=== PATIENT | male | born 1940 | race Caucasian/White ===

== ENCOUNTER 2016-08-05 07:45 | Emergency (ER) | payer OTHER ==
[2016-08-05 08:10] VITALS: BP 135/44
[2016-08-05] MEDS ORDERED: Albuterol 2.5 MG/3 ML NEB.SOL* (0.083%) INH ONE (08:25)
[2016-08-05] MEDS ORDERED: Ipratropium 0.5MG/2.5ML NEB* 0.5 MG/2.5 ML NEB.SOLN INH ONE (08:25)
--- NOTE | 2016-08-05 08:43 | UC ---
Respiratory Complaint HPI - HPI Summary HPI Summary: 75 yo male with copd on home O2 presents with a 2 week hx of worsening wheezing and dyspnea no f/c no CP - History of Current Complaint Chief Complaint: UCRespiratory Stated Complaint: COUGH Time Seen by Provider: 08/05/16 08:06 Hx Obtained From: Patient Onset/Duration: Gradual Onset, Lasting Weeks Timing: Constant Severity Initially: Mild Severity Currently: Moderate Pain Intensity: 2 Pain Scale Used: 0-10 Numeric Character: Cough: Nonproductive Aggravating Factors: Exertion Alleviating Factors: Bronchodilator Associated Signs And Symptoms: Positive: Dyspnea, Wheezing - Allergies/Home Medications Allergies/Adverse Reactions: Allergies Allergy/AdvReac Type Severity Reaction Status Date / Time No Known Allergies Allergy Verified 08/05/16 08:09 Home Medications: Home Medications Albuterol HFA INHALER* [Ventolin HFA Inhaler*] 2 puff INH Q6H PRN 08/05/16 [ History Confirmed 08/05/16] Benazepril & Hydrochlorothiazi [Lotensin Hct 20-12.5 mg] 1 tab PO DAILY [History Confirmed 08/05/16] Diclofenac Sodium [Diclofenac Sodium Xr] 75 mg PO BID 08/05/16 [History Confirmed 08/05/16] Fluticasone Propionate (Nasal) [Flonase Allergy Relief] 50 mcg NA BID 08/05/16 [ History Confirmed 08/05/16] Fluticasone-Salmeterol 250-50* [Advair Diskus 250-50*] 1 puff INH BID 08/05/16 [ History Confirmed 08/05/16] Folic Acid TAB* [Folvite TAB*] 1 mg PO DAILY 08/05/16 [History Confirmed ] Hydroxychloroquine TAB* [Plaquenil TAB*] 200 mg PO BID 08/05/16 [History Confirmed 08/05/16] Methotrexate TAB* 3 tab PO WEEKLY 08/05/16 [History Confirmed 08/05/16] Omeprazole CAP* [Prilosec CAP* 20 MG] 20 mg PO DAILY 08/05/16 [History Confirmed 08/05/16] amLODIPine TAB* [Norvasc TAB*] 5 mg PO DAILY 08/05/16 [History Confirmed ] guaiFENesin ER TAB [Mucinex*] 600 mg PO BID 08/05/16 [History Confirmed 08/05/16 ] PMH/Surg Hx/FS Hx/Imm Hx Cardiovascular History Of: Reports: Hypertension Respiratory History Of: Reports: COPD, Pneumonia - Surgical History Surgical History: Yes Surgery Procedure, Year, and Place: LEFT HAND - Family History Known Family History: Positive: Hypertension, Respiratory Disease - Social History Alcohol Use: Weekly Substance Use Type: None Smoking Status (MU): Former Smoker When Did the Patient Quit Smoking/Using Tobacco: 8 YRS AGO Review of Systems Constitutional: Negative Skin: Negative Eyes: Negative ENT: Negative Respiratory: Shortness Of Breath, Cough Cardiovascular: Negative Gastrointestinal: Negative Genitourinary: Negative Motor: Negative Neurovascular: Negative Musculoskeletal: Negative Neurological: Negative Psychological: Negative All Other Systems Reviewed And Are Negative: Yes Physical Exam Triage Information Reviewed: Yes Appearance: No Pain Distress, Well-Nourished Vital Signs: Initial Vital Signs Temp 97.8 F 08/05/16 08:01 Pulse 76 08/05/16 08:01 Resp 16 08/05/16 08:01 BP 135/44 08/05/16 08:01 Pulse Ox 89 08/05/16 08:01 Eyes: Positive: Conjunctiva Clear ENT: Negative: Hearing grossly normal, Nasal congestion, Nasal drainage, Trismus , Muffled/hoarse voice Neck: Positive: Supple, Nontender Respiratory: Positive: No respiratory distress, No accessory muscle use, Wheezing Cardiovascular: Positive: RRR. Negative: Tachycardia, Bradycardia Musculoskeletal: Positive: ROM Intact, No Edema Neurological Exam: Normal Neurological: Positive: Alert Psychological Exam: Normal Skin Exam: Normal UC Diagnostic Evaluation - Laboratory O2 Sat by Pulse Oximetry: 89 - on room air/hypoxic Re-Evaluation - Re-Evaluation First Eval Re-Evaluation Time: 09:26 Change: Improved - much less wheezing Respiratory Course/Dx - Differential Dx/Diagnosis Provider Diagnoses: acute bronchitis with bronchospasm Discharge - Discharge Plan Condition: Stable Disposition: HOME Prescriptions: Azithromycin TAB* [Zithromax TAB*] 250 mg PO DAILY #6 tab Prednisone [Deltasone] 40 mg PO DAILY #10 tab Patient Education Materials: Acute Bronchitis (ED) Referrals: Linnette Driver MD [Primary Care Provider] - 4 Days (recheck in 4-5 days) Additional Instructions: to ER for new or worsening symptoms
== END 2016-08-05 09:36 | disposition home or self-care (01) ==
LOC: UCCORT 07:45
DX: J44.0 Chronic obstructive pulmonary disease with (acute) lower respiratory infection (principal); J20.9 Acute bronchitis, unspecified; I10 Essential (primary) hypertension; Z87.891 Personal history of nicotine dependence
CPT/HCPCS: 99212; G0463; J7644

== ENCOUNTER 2017-05-03 13:33 | Emergency (ER) | payer OTHER ==
[2017-05-03 14:47] VITALS: BP 136/65
--- NOTE | 2017-05-03 15:10 | UC ---
Shoulder Pain HPI - HPI Summary HPI Summary: pt c/o upper back and upper arm pain, myalgia X 2 weeks. Denies injury , cp, sob, jaw pain, or nausea. - History of Current Complaint Chief Complaint: UCUpperExtremity Stated Complaint: LEFT SHOULDER INJ Time Seen by Provider: 05/03/17 14:45 Hx Obtained From: Patient Onset/Duration: Gradual Onset, Lasting Weeks - 2, Still Present Timing: Constant Severity Initially: Mild Severity Currently: Mild Character: Dull, Aching, Stiffness Aggravating Factor(s): Movement Alleviating Factor(s): Rest, Other - warm pack Associated Signs And Symptoms: Positive: Negative Related History: Dominant Hand Right - Risk Factors Non-Orthopedic Risk Factor: Negative DVT Risk Factors: Negative Septic Arthritis Risk Factor: Negative - Allergies/Home Medications Allergies/Adverse Reactions: Allergies Allergy/AdvReac Type Severity Reaction Status Date / Time No Known Allergies Allergy Verified 05/03/17 14:02 Home Medications: Home Medications Albuterol HFA INHALER* [Ventolin HFA Inhaler*] 2 puff QID PRN 05/03/17 [History Confirmed 05/03/17] Benazepril & Hydrochlorothiazi [Lotensin Hct 20-12.5 mg] 1 tab DAILY 05/03/17 [ History Confirmed 05/03/17] Diclofenac Sodium (Topical) [Diclofenac Sodium] 1 applic DAILY PRN 05/03/17 [ History Confirmed 05/03/17] Diclofenac Sodium EC TAB* [Voltaren EC TAB*] 75 mg BID 05/03/17 [History Confirmed 05/03/17] Fluticasone-Salmeterol 250-50* [Advair Diskus 250-50*] 1 puff BID 05/03/17 [ History Confirmed 05/03/17] Folic Acid TAB* [Folvite TAB*] 1 mg DAILY 05/03/17 [History Confirmed 05/03/17] Hydroxychloroquine TAB* [Plaquenil TAB*] 1 tab BID 05/03/17 [History Confirmed 05/03/17] Methotrexate TAB* 3 tab WEEKLY 05/03/17 [History Confirmed 05/03/17] Omeprazole CAP* [Prilosec CAP* 20 MG] 1 cap DAILY 05/03/17 [History Confirmed ] Oxygen 2 PRN 05/03/17 [History] amLODIPine TAB* [Norvasc 5 mg TAB*] 1 tab DAILY 05/03/17 [History Confirmed ] PMH/Surg Hx/FS Hx/Imm Hx Previously Healthy: Yes - arthritis Cardiovascular History: Hypertension - Surgical History Surgical History: Yes Surgery Procedure, Year, and Place: LEFT HAND. 1997 RIGHT rotator cuff - Family History Known Family History: Positive: Hypertension, Respiratory Disease - Social History Occupation: Retired Lives: With Family Alcohol Use: Occasionally Substance Use Type: None Smoking Status (MU): Former Smoker Have You Smoked in the Last Year: No When Did the Patient Quit Smoking/Using Tobacco: 8 YRS AGO - Immunization History Most Recent Influenza Vaccination: 2017 Vaccination Up to Date: Yes Review of Systems Constitutional: Negative Skin: Negative Eyes: Negative ENT: Negative Respiratory: Negative Cardiovascular: Negative Gastrointestinal: Negative Genitourinary: Negative Motor: Decreased ROM - right shoulder has history of torn rotator cuff, Neurovascular: Negative Musculoskeletal: Arthralgia - upper back that radiates to bilateral shoulders,, Myalgia - upper back, and left upper arm Neurological: Negative Psychological: Negative Is Patient Immunocompromised?: No All Other Systems Reviewed And Are Negative: Yes Physical Exam Triage Information Reviewed: Yes Appearance: Well-Appearing Vital Signs: Initial Vital Signs Temp 97.6 F 05/03/17 14:07 Pulse 69 05/03/17 14:07 Resp 22 05/03/17 14:07 BP 136/65 05/03/17 14:07 Pulse Ox 91 05/03/17 14:07 Vital Signs Reviewed: Yes Eye Exam: Normal ENT Exam: Normal Neck exam: Other Neck: Positive: Tenderness @ - cervical vertebra # 6-7 Respiratory Exam: Normal Cardiovascular Exam: Normal Cardiovascular: Positive: RRR Musculoskeletal Exam: Other Musculoskeletal: Positive: ROM Limited @ - right shoulder, pt has history of torn rotator cuff Neurological Exam: Normal Psychological Exam: Normal Skin Exam: Normal Shoulder Course/Dx - Course Course Of Treatment: I discussed with the pt any cp, nausea vomiting, sob or any cardiac symptom. Pt denied any symptoms relating to cardiac . pt states that he has history of arthritis and does have temporary relief of pain with warming pad and use of diclofenac - Differential Dx/Diagnosis Differential Diagnosis/HQI/PQRI: Arthritis Provider Diagnoses: cervical radicuopathy. neck pain Discharge - Discharge Plan Condition: Stable Disposition: HOME Patient Education Materials: Cervical Radiculopathy (ED), Neck Pain (ED) Referrals: Linnette Driver MD [Primary Care Provider] - As Soon As Possible
== END 2017-05-03 15:20 | disposition home or self-care (01) ==
LOC: UCCORT 13:33
DX: M54.12 Radiculopathy, cervical region (principal); M54.2 Cervicalgia; I10 Essential (primary) hypertension; Z87.891 Personal history of nicotine dependence
CPT/HCPCS: 99212; G0463

== ENCOUNTER 2017-06-28 14:58 | Emergency (ER) | payer OTHER ==
--- NOTE | 2017-06-28 15:22 | UC ---
Respiratory Complaint HPI - HPI Summary HPI Summary: 76 year old male with SOB presents with complains of wheezing. - History of Current Complaint Stated Complaint: COUGH Time Seen by Provider: 06/28/17 15:22 Hx Obtained From: Patient Onset/Duration: Sudden Onset Severity Initially: Moderate Severity Currently: Moderate Pain Scale Used: 0-10 Numeric - 0 - Allergies/Home Medications Allergies/Adverse Reactions: Allergies Allergy/AdvReac Type Severity Reaction Status Date / Time No Known Allergies Allergy Verified 06/28/17 15:24 Home Medications: Home Medications Albuterol 2.5MG/3ML (0.083%)* [Ventolin 2.5 MG/3 ML NEB.INOCENTE*] 2.5 mg INH Q4H PRN 06/28/17 [History Confirmed 06/28/17] Tiotropium CAP.INH* [Spiriva CAP.INH*] 2 cap.inh INH DAILY 06/28/17 [History Confirmed 06/28/17] PMH/Surg Hx/FS Hx/Imm Hx Previously Healthy: Yes - Surgical History Surgical History: Yes Surgery Procedure, Year, and Place: LEFT HAND - Family History Known Family History: Positive: Hypertension, Respiratory Disease - Social History Alcohol Use: Weekly Substance Use Type: None Smoking Status (MU): Former Smoker Have You Smoked in the Last Year: No When Did the Patient Quit Smoking/Using Tobacco: 8 YRS AGO - Immunization History Most Recent Influenza Vaccination: 2017 Vaccination Up to Date: Yes Review of Systems Constitutional: Negative Skin: Negative Eyes: Negative ENT: Sore Throat, Nasal Discharge Respiratory: Cough Cardiovascular: Negative Gastrointestinal: Negative Genitourinary: Negative Motor: Negative Neurovascular: Negative Musculoskeletal: Negative Neurological: Negative Psychological: Negative All Other Systems Reviewed And Are Negative: Yes Physical Exam Triage Information Reviewed: Yes Vital Signs Reviewed: Yes Eye Exam: Normal ENT: Positive: Pharyngeal erythema, Nasal congestion, Nasal drainage Dental Exam: Normal Neck exam: Normal Neck: Positive: 1 Respiratory Exam: Normal Cardiovascular Exam: Normal Abdominal Exam: Normal Musculoskeletal Exam: Normal Neurological Exam: Normal Psychological Exam: Normal Skin Exam: Normal Respiratory Course/Dx - Differential Dx/Diagnosis Provider Diagnoses: COUGH. WHEEZING Discharge - Discharge Plan Condition: Stable Disposition: HOME Prescriptions: Azithromyxin APARNA (NF) [Z-Aparna (Zithromax) 250 mg tabs #6] 2 tab PO .TODAY, THEN 1 DAILY #6 tab Methylprednisolone [Medrol Dosepak 4 MG*] 4 mg PO .SEE APARNA INSTRUCTION #21 tab Patient Education Materials: COPD (Chronic Obstructive Pulmonary Disease) (ED) Referrals: Linnette Driver MD [Primary Care Provider] -
[2017-06-28 15:24] VITALS: BP 126/74
== END 2017-06-28 15:46 | disposition home or self-care (01) ==
LOC: UCCORT 14:58
DX: R05 Cough (principal); R06.2 Wheezing; Z72.89 Other problems related to lifestyle; Z87.891 Personal history of nicotine dependence
CPT/HCPCS: 99211; G0463

== ENCOUNTER 2017-09-10 08:13 | Emergency (ER) | payer OTHER ==
[2017-09-10 08:28] VITALS: BP 126/78
--- NOTE | 2017-09-10 08:41 | UC ---
Respiratory Complaint HPI - HPI Summary HPI Summary: Pt c/o cough, nasal and chest congestion. Also, pt c/o right foot numbness that has been going on "for awhile" denies injury, back pain or loss of bowel or bladder control . - History of Current Complaint Chief Complaint: UCRespiratory Stated Complaint: SORE THROAT Time Seen by Provider: 09/10/17 08:32 Hx Obtained From: Patient Onset/Duration: Gradual Onset, Lasting Days, Still Present Timing: Constant Severity Initially: Mild Severity Currently: Mild Pain Intensity: 0 Character: Cough: Productive Aggravating Factors: Deep Breaths, Recumbent Position Alleviating Factors: Bronchodilator Associated Signs And Symptoms: Positive: URI, Nasal Congestion Related History: Seasonal Allergies - pt denies, but states he has "this happen once a year at the same time each year" - Risk Factors Cardiac Risk Factors: Negative Pseudomonas Risk Factors: Chronic Lung Disease Tuberculosis Risk Factors: Negative - Allergies/Home Medications Allergies/Adverse Reactions: Allergies Allergy/AdvReac Type Severity Reaction Status Date / Time No Known Allergies Allergy Verified 09/10/17 08:28 PMH/Surg Hx/FS Hx/Imm Hx Previously Healthy: Yes Respiratory History: COPD - Surgical History Surgical History: Yes Surgery Procedure, Year, and Place: LEFT HAND - Family History Known Family History: Positive: Hypertension, Respiratory Disease - Social History Occupation: Retired Lives: With Family Alcohol Use: Weekly Substance Use Type: None Smoking Status (MU): Former Smoker Have You Smoked in the Last Year: No When Did the Patient Quit Smoking/Using Tobacco: 8 YRS AGO - Immunization History Most Recent Influenza Vaccination: 2017 Vaccination Up to Date: Yes Review of Systems Constitutional: Fatigue Skin: Negative Eyes: Negative ENT: Other - nasal congestion Respiratory: Shortness Of Breath, Cough Cardiovascular: Negative Gastrointestinal: Negative Genitourinary: Negative Motor: Negative Neurovascular: Negative Musculoskeletal: Edema - bilateral LE 1+ Neurological: Negative Psychological: Negative Is Patient Immunocompromised?: No All Other Systems Reviewed And Are Negative: Yes Physical Exam Triage Information Reviewed: Yes Appearance: Well-Appearing Vital Signs: Initial Vital Signs Temp 98.4 F 09/10/17 08:23 Pulse 80 09/10/17 08:23 Resp 16 09/10/17 08:23 BP 126/78 09/10/17 08:23 Pulse Ox 94 09/10/17 08:23 Vital Signs Reviewed: Yes Eye Exam: Normal ENT: Positive: Nasal congestion Dental Exam: Normal Neck exam: Normal Respiratory Exam: Other Respiratory: Positive: Decreased breath sounds Cardiovascular Exam: Normal Musculoskeletal: Positive: Edema @ - bilateral LE 1+ Neurological Exam: Other - c/o right foot numbness Psychological Exam: Normal Skin Exam: Normal UC Diagnostic Evaluation - Laboratory O2 Sat by Pulse Oximetry: 94 Respiratory Course/Dx - Differential Dx/Diagnosis Differential Diagnosis/HQI/PQRI: Bronchitis, Exacerbation Of COPD, Other - neuropathy Provider Diagnoses: bronchitis. exacerbation of COPD. neuropathy right foot. Discharge - Sign-Out/Discharge Documenting (check all that apply): Discharge - Discharge Plan Condition: Stable Disposition: HOME Prescriptions: Azithromycin TAB* [Zithromax TAB (Z-APARNA) 250 mg #6 tabs] 2 tab PO .TODAY, THEN 1 DAILY #1 aparna Cetirizine* [ZyrTEC 10 MG TAB*] 10 mg PO DAILY #14 tab methylPREDNISolone TAB* [Medrol TAB*] 4 - 8 mg PO .SEE APARNA #1 aparna Patient Education Materials: Acute Bronchitis (ED) Referrals: Linnette Driver MD [Primary Care Provider] - If Needed Toshia Arroyo MD [Medical Doctor] - Additional Instructions: Please follow up with your PCP as needed or return to clinic. Please note we have provided a referral to a Neurologist has been provided. - Billing Disposition and Condition Condition: STABLE Disposition: HOME
== END 2017-09-10 08:56 | disposition home or self-care (01) ==
LOC: UCCORT 08:13
DX: Z87.891 Personal history of nicotine dependence (principal); J40 Bronchitis, not specified as acute or chronic; J44.1 Chronic obstructive pulmonary disease with (acute) exacerbation; G62.9 Polyneuropathy, unspecified
CPT/HCPCS: 99212; G0463

== ENCOUNTER 2017-10-15 08:26 | Emergency (ER) | payer OTHER ==
[2017-10-15 08:48] VITALS: BP 133/65
--- NOTE | 2017-10-15 09:02 | ED ---
Respiratory - HPI Summary HPI Summary: Productive cough, sore throat and wheezing x6 weeks. No fever/chills. Saw PCP 2 weeks ago and rx billie yao w/ not much cough relief. Was seen here 09/10 and tx for bronchitis and COPD exacerbation- rx zpak and medrol parminder. States after finishing abx/steroids he had some relief in sx "for a bit until it came right back". The patient is 76 yrs old. Has not smoked in 10 years, and he worked as a [employer] most of his life. He denies chest pain, heaviness in his chest. Denies fever and chills. He states he is producing yellow sputum and feels like he is wheezing often. - History of Current Complaint Chief Complaint: UCRespiratory Stated Complaint: COUGH Time Seen by Provider: 10/15/17 08:37 Pain Intensity: 0 - Allergy/Home Medications Allergies/Adverse Reactions: Allergies Allergy/AdvReac Type Severity Reaction Status Date / Time No Known Allergies Allergy Verified 10/15/17 08:36 PMH/Surg Hx/FS Hx/Imm Hx Cardiovascular History: Reports: Hx Hypertension Respiratory History: Reports: Hx Chronic Obstructive Pulmonary Disease (COPD), Hx Pneumonia Musculoskeletal History: Reports: Hx Rheumatoid Arthritis - Surgical History Surgery Procedure, Year, and Place: LEFT HAND Infectious Disease History: No Infectious Disease History: Denies: Traveled Outside the [place] in Last 30 Days - Family History Known Family History: Positive: Hypertension, Respiratory Disease - Social History Occupation: Retired Alcohol Use: Occasionally Substance Use Type: Reports: None Hx Tobacco Use: Yes Smoking Status (MU): Former Smoker Have You Smoked in the Last Year: No Review of Systems Constitutional: Negative Positive: Cough All Other Systems Reviewed And Are Negative: Yes Physical Exam Triage Information Reviewed: Yes Vital Signs On Initial Exam: Initial Vitals Temp Pulse Resp BP Pulse Ox 98.2 F 68 24 133/65 93 10/15/17 08:41 10/15/17 08:41 10/15/17 08:41 10/15/17 08:41 10/15/17 08:41 Vital Signs Reviewed: Yes Appearance: Positive: Well-Appearing, No Pain Distress Skin: Positive: Warm, Skin Color Reflects Adequate Perfusion Head/Face: Positive: Normal Head/Face Inspection Eyes: Positive: EOMI ENT: Positive: Normal ENT inspection Neck: Positive: Nontender Respiratory/Lung Sounds: Positive: Other - focal rales in the right anterior chest over middle lobe area. Cardiovascular: Positive: RRR. Negative: Murmur Abdomen Description: Positive: Nontender Musculoskeletal: Positive: Strength/ROM Intact Neurological: Positive: Sensory/Motor Intact, Alert, Oriented to Person Place, Time, CN Intact II-III Psychiatric: Positive: Normal - [place] Coma Scale Best Eye Response: 4 - Spontaneous Best Motor Response: 6 - Obeys Commands Best Verbal Response: 5 - Oriented Coma Scale Total: 15 Diagnostics - Vital Signs Vital Signs Temp Pulse Resp BP Pulse Ox 10/15/17 08:41 98.2 F 68 24 133/65 93 - Laboratory Lab Statement: Any lab studies that have been ordered have been reviewed, and results considered in the medical decision making process. - Radiology chest xray pa/lat Xray Interpretation: No Acute Changes - chronic changes, copd Radiology Interpretation Completed By: Radiologist Disposition - Course Course Of Treatment: 76 yr old male with COPD exacerbation. My feeling is based on his exam he has some consolidation in the right Mid lobe, and will treat like pneumonia. Will cover him with antibiotics, and steroids. He will follow up with his PMD. - Diagnoses Provider Diagnoses: COPD with exacerbation, Pneumonia Discharge - Sign-Out/Discharge Documenting (check all that apply): Discharge/Admit/Transfer - Discharge Plan Condition: Good Disposition: HOME Prescriptions: Amoxicillin/Clavulanate TAB* [Augmentin TAB 875*] 875 mg PO BID #20 tab Levofloxacin TAB* [Levaquin TAB*] 500 mg PO DAILY #10 tab predniSONE TAB* [Deltasone TAB*] 40 mg PO DAILY #8 tab Patient Education Materials: COPD (Chronic Obstructive Pulmonary Disease) (DC) , Bacterial Pneumonia (ED) Referrals: Linnette Driver MD [Primary Care Provider] - 3 Days Additional Instructions: be sure to follow up with your PMD next week. - Billing Disposition and Condition Condition: GOOD Disposition: HOME
--- NOTE | 2017-10-15 09:17 | RAD ---
INDICATION: 6 weeks productive cough, sore throat, wheezing. COMPARISON: October 08, 2014 TECHNIQUE: Dual energy PA and routine lateral views of the chest were obtained. REPORT: Elevated lung volumes with increased AP thoracic diameter. Patchy rarefaction of interstitial markings. No focal pulmonary lesion, compelling alveolar consolidation, pleural effusion, pneumothorax. The heart, pulmonary vasculature, and mediastinal contours are unremarkable. Advanced arthropathy of the RIGHT glenohumeral joint with stigmata of chronic full-thickness rotator cuff tear. IMPRESSION: Stigmata of obstructive lung disease. No acute pulmonary or cardiac process evident.
== END 2017-10-15 09:35 | disposition home or self-care (01) ==
LOC: UCCORT 08:26
DX: J44.1 Chronic obstructive pulmonary disease with (acute) exacerbation (principal); J18.9 Pneumonia, unspecified organism; Z87.891 Personal history of nicotine dependence
CPT/HCPCS: 71046; 99212; G0463

== ENCOUNTER 2017-10-18 07:16 | Emergency (ER) | payer OTHER ==
[2017-10-18 08:28] VITALS: BP 138/69
--- NOTE | 2018-01-03 09:14 | UC ---
General HPI - HPI Summary HPI Summary: Here Tuesday, diagnosed with pneumonia, here today for re-check as encouraged. Feels a little better- still coughing, but not coughing as much. No new symptoms. Tolerating abx ok. No GI iissues. No sob / cp. No rash. Plans to f/u with PCP as well. - History of Current Complaint Chief Complaint: UCRespiratory Stated Complaint: RECHECK PNEUMONIA Time Seen by Provider: 10/18/17 09:08 Hx Obtained From: Patient Pain Intensity: 0 - Allergy/Home Medications Allergies/Adverse Reactions: Allergies Allergy/AdvReac Type Severity Reaction Status Date / Time No Known Allergies Allergy Verified 10/18/17 08:20 PMH/Surg Hx/FS Hx/Imm Hx Previously Healthy: No - see below + copd Respiratory History: COPD - copd, Pneumonia - pneumonia - Surgical History Surgical History: Yes Surgery Procedure, Year, and Place: LEFT HAND - Family History Known Family History: Positive: Hypertension, Respiratory Disease - Social History Alcohol Use: Occasionally Substance Use Type: None Smoking Status (MU): Former Smoker Have You Smoked in the Last Year: No When Did the Patient Quit Smoking/Using Tobacco: 8 YRS AGO - Immunization History Most Recent Influenza Vaccination: 2017 Vaccination Up to Date: Yes Review of Systems Constitutional: Fatigue Skin: Negative Eyes: Negative ENT: Negative Respiratory: Cough Cardiovascular: Negative Gastrointestinal: Abdominal Pain Genitourinary: Negative Motor: Negative Neurovascular: Negative Musculoskeletal: Negative - no new swelling Neurological: Negative Psychological: Negative Is Patient Immunocompromised?: No All Other Systems Reviewed And Are Negative: Yes Physical Exam Triage Information Reviewed: Yes Appearance: Well-Nourished - sitting up, conversing in full sentances. NAD. Nontoxic general appearanc. Vital Signs: Initial Vital Signs Temp 97.7 F 10/18/17 08:22 Pulse 67 10/18/17 08:22 Resp 20 10/18/17 08:22 BP 138/69 10/18/17 08:22 Pulse Ox 94 10/18/17 08:22 Vital Signs Reviewed: Yes Eye Exam: Normal ENT: Positive: Pharyngeal erythema - mild post pharyng redness, c/w cough. No sores / exudates Neck exam: Normal Neck: Positive: Supple, Nontender Respiratory Exam: Other - + rhonchorus cough. Cardiovascular: Positive: RRR, Pulses Normal, Brisk Capillary Refill Abdominal Exam: Normal Abdomen Description: Positive: Nontender Musculoskeletal: Positive: Edema @ - mild dependent edema BLE, bilat similar. Feet warm to touch. Neurological Exam: Normal - grossly nonfocal Psychological Exam: Normal - conversing easily and appropriately. Skin Exam: Normal - nondiaphoretic. No visible or reported rash. Course/Dx - Course Course Of Treatment: REviewed previous [facility] notes, and CXR. Reviewed with Mr. Hauser coa / tx plan. And encouraged f/u PCP. He expresses understanding and agreement. Questions as posed answered to the best of my ability. - Differential Dx - Multi-Symptom Provider Diagnoses: Pneumonia recheck Discharge - Sign-Out/Discharge Documenting (check all that apply): Patient Departure - Discharge Plan Condition: Stable Disposition: HOME Patient Education Materials: COPD (Chronic Obstructive Pulmonary Disease) (ED) , Bacterial Pneumonia (ED) Referrals: Linnette Driver MD [Primary Care Provider] - Additional Instructions: Follow up with your primary care physician in 1-2 weeks. You were diagnosed with pneumonia on 10/15/17. Your condition is a little better, but still continue your medications as previously prescribed. Go to the Emergency Department for worse or new problems. Drink plenty of water, especially while taking antibiotics. - Billing Disposition and Condition Condition: STABLE Disposition: Home
== END 2017-10-18 09:46 | disposition home or self-care (01) ==
LOC: UCCORT 07:16
DX: J18.9 Pneumonia, unspecified organism (principal); R05 Cough; R53.83 Other fatigue; J44.9 Chronic obstructive pulmonary disease, unspecified; Z82.49 Family history of ischemic heart disease and other diseases of the circulatory system; Z83.6 Family history of other diseases of the respiratory system; Z87.891 Personal history of nicotine dependence
CPT/HCPCS: 99212; G0463

== ENCOUNTER 2019-01-13 18:00 | Emergency (ER) | payer OTHER ==
[2019-01-13 18:22] VITALS: BP 116/60
[2019-01-13] MEDS ORDERED: Ipratropium 0.5MG/2.5ML NEB* 0.5 MG/2.5 ML NEB.SOLN INH ONE (18:33)
[2019-01-13] MEDS ORDERED: Albuterol 2.5 MG/3 ML NEB.SOL* (0.083%) INH ONE (18:33)
--- NOTE | 2019-01-13 18:57 | UC ---
Respiratory Complaint HPI - HPI Summary HPI Summary: 78 yo male with COPD on home O2 presents with one week hx of cough and wheezing Has been using his meds no fever no CP did not bring his O2 in here has sinus pressure and pain - History of Current Complaint Chief Complaint: UCGeneralIllness Stated Complaint: SINUS COMPLAINT Time Seen by Provider: 01/13/19 18:26 Hx Obtained From: Patient Onset/Duration: Sudden Onset, Gradual Onset, Lasting Minutes Severity Initially: Moderate Severity Currently: Moderate Pain Intensity: 5 Pain Scale Used: 0-10 Numeric Character: Cough: Nonproductive Aggravating Factors: Nothing Alleviating Factors: Bronchodilator Associated Signs And Symptoms: Positive: Wheezing, Nasal Congestion, Sinus Discomfort Related History: Similar Episode/Dx as: - bronchitis/pneumonia - Allergies/Home Medications Allergies/Adverse Reactions: Allergies Allergy/AdvReac Type Severity Reaction Status Date / Time No Known Allergies Allergy Verified 01/13/19 18:23 PMH/Surg Hx/FS Hx/Imm Hx Previously Healthy: Yes Cardiovascular History: Hypertension Respiratory History: COPD, Bronchitis, Pneumonia - Surgical History Surgical History: Yes Surgery Procedure, Year, and Place: LEFT HAND. right side of head, SKIN cancer - Family History Known Family History: Positive: Hypertension, Respiratory Disease - Social History Alcohol Use: Occasionally Substance Use Type: None Smoking Status (MU): Former Smoker Have You Smoked in the Last Year: No When Did the Patient Quit Smoking/Using Tobacco: 8 YRS AGO - Immunization History Most Recent Influenza Vaccination: 2017 Vaccination Up to Date: Yes Review of Systems All Other Systems Reviewed And Are Negative: Yes Constitutional: Positive: Negative Skin: Positive: Negative Eyes: Positive: Negative ENT: Positive: Nasal Discharge, Sinus Congestion, Sinus Pain/Tenderness Respiratory: Positive: Shortness Of Breath - chronic, Cough Gastrointestinal: Positive: Negative Genitourinary: Positive: Negative Motor: Positive: Negative Neurovascular: Positive: Negative Musculoskeletal: Positive: Negative Neurological: Positive: Negative Psychological: Positive: Negative Physical Exam Triage Information Reviewed: Yes Appearance: Well-Appearing, No Pain Distress, Well-Nourished Vital Signs: Initial Vital Signs Temp 98.6 F 01/13/19 18:17 Pulse 79 01/13/19 18:17 Resp 18 01/13/19 18:17 BP 116/60 01/13/19 18:17 Pulse Ox 89 01/13/19 18:17 Vital Signs Reviewed: Yes Eyes: Positive: Conjunctiva Clear ENT: Positive: Nasal congestion, Sinus tenderness, Uvula midline. Negative: Hearing grossly normal - [place], Nasal drainage, Tonsillar swelling, Tonsillar exudate, Trismus, Muffled voice, Hoarse voice Neck: Positive: Supple, Nontender Respiratory: Positive: No respiratory distress, No accessory muscle use, Wheezing Cardiovascular: Positive: RRR. Negative: Tachycardia, Bradycardia Musculoskeletal: Positive: ROM Intact, No Edema Neurological: Positive: Alert Psychological Exam: Normal Skin Exam: Normal Re-Evaluation - Re-Evaluation First Eval Re-Evaluation Time: 19:07 Change: Improved Comment: improved after neb, lungs clear Respiratory Course/Dx - Differential Dx/Diagnosis Provider Diagnosis: Bronchitis with bronchospasm, Sinusitis Discharge - Sign-Out/Discharge Documenting (check all that apply): Patient Departure All imaging exams completed and their final reports reviewed: No Studies - Discharge Plan Condition: Stable Disposition: HOME Prescriptions: Azithromycin TAB* [Zithromax TAB*] 250 mg PO DAILY #4 tab predniSONE [Deltasone 20 MG TAB] 20 mg PO DAILY #4 tab Patient Education Materials: Acute Bronchitis (ED), Sinusitis (ED) Referrals: Linnette Driver MD [Primary Care Provider] - 4 Days - Billing Disposition and Condition Condition: STABLE Disposition: Home
[2019-01-13] MEDS ORDERED: Azithromycin TAB* 250 MG PO ONE (19:02)
[2019-01-13] MEDS ORDERED: predniSONE TAB* 20 MG PO ONE (19:02)
== END 2019-01-13 19:15 | disposition home or self-care (01) ==
LOC: UCCORT 18:00
DX: J32.9 Chronic sinusitis, unspecified (principal); J44.9 Chronic obstructive pulmonary disease, unspecified; Z99.81 Dependence on supplemental oxygen; I10 Essential (primary) hypertension; Z87.891 Personal history of nicotine dependence
CPT/HCPCS: 99213; A9270-GY; G0463; J7512